=== PATIENT | female | born 1980 | race Caucasian/White ===

== ENCOUNTER 2020-02-18 06:39 | Emergency (ER) | payer OTHER ==
[2020-02-18 07:10] VITALS: TEMP 97.4; BMI 31.4
[2020-02-18] MEDS ORDERED: SODIUM CHLORIDE 1,000 ML IV STA ×2 (07:33→08:58)
[2020-02-18] MEDS ORDERED: ONDANSETRON 4 MG/2 ML VIAL IVPUSH ONE ×2 (07:33→08:58)
[2020-02-18 08:41] LABS: BASO % 0.4 % (0-2.0); HEMOGLOBIN 16.1 GM/dL (10.7-15.3); LYMPH % 5.6 % (8-40); MCH 29.6 pg (25.7-33.7); MCHC 32.9 g/dl (32.0-36.0); MEAN CELL VOLUME 89.9 fl (80-96); MEAN PLT VOLUME 10.2 fl (7.5-11.1); RBC 5.45 M/mm3 (3.60-5.2); RDW 14.4 % (11.6-15.6); WHITE BLOOD COUNT 25.9 K/mm3 (4.0-10.0)
[2020-02-18] MEDS ORDERED: ONDANSETRON 4 MG/2 ML VIAL ONE (08:58)
[2020-02-18 09:35] LABS: ALBUMIN 5.1 g/dl (3.4-5.0); BILIRUBIN,TOTAL 0.5 mg/dL (0.2-1); BLOOD UREA NITROGEN 10.8 mg/dL (7-18); CREATININE 0.9 mg/dL (0.55-1.3); MAGNESIUM 1.7 mg/dL (1.8-2.4); POTASSIUM 4.3 mmol/L (3.5-5.1); TOT PROT 9.1 g/dl (6.4-8.2)
[2020-02-18 09:39] LABS: HCG,QUALITATIVE URINE Negative
[2020-02-18 09:41] LABS: EPI CELLS 32 /uL (0-25.1); HYALINE CASTS 1 /uL (0-3.1); PH,URINE 5.5 (5.0-8.0); URINE APPEARANCE CLEAR; URINE BACTERIA 960 /uL (0-1359); URINE BILIRUBIN NEGATIVE (NEGATIVE); URINE COLOR YELLOW; URINE GLUCOSE (UA) NEGATIVE (NEGATIVE); URINE KETONE 4+ (NEGATIVE); URINE LEUK ESTERASE NEGATIVE (NEGATIVE); URINE NITRITE NEGATIVE (NEGATIVE); URINE PROTEIN 2+ (NEGATIVE); URINE RBC 8 /uL (0-23.9); URINE UROBILINOGEN 0.2 mg/dL (0.2-1.0); URINE WBC 12 /uL (0-25.8)
[2020-02-18] MEDS ORDERED: LORazepam 2 MG/ML SDV VIAL ONE (10:33)
[2020-02-18 11:26] LABS: ANISOCYTOSIS 1+; MACROCYTOSIS 0; OVALOCYTE 1+; PLATELET ESTIMATE NORMAL
[2020-02-18 11:27] LABS: PLATELET COUNT 447 K/MM3 (134-434)
[2020-02-18 12:26] VITALS: BP 122/82; PULSE 86
== END 2020-02-18 12:25 | disposition home or self-care (01) ==
LOC: JER 06:39
PROC: 3E0337Z Introduction of Electrolytic and Water Balance Substance into Peripheral Vein, Percutaneous Approach (ICD-10-PCS; principal; 2020-02-18)
PROC: 3E033GC Introduction of Other Therapeutic Substance into Peripheral Vein, Percutaneous Approach (ICD-10-PCS; principal; 2020-02-18)
DX: R11.2 Nausea with vomiting, unspecified (principal)
CPT/HCPCS: 36415; 80053; 81003; 83690; 83735; 84703; 85025; 87086; 99284-25; C9803; U0003